=== PATIENT | female | born 1965 | race Caucasian/White ===

== ENCOUNTER 2017-08-12 09:40 | Outpatient (CLI) | payer OTHER | END 2017-08-12 09:41 | disposition home or self-care (01) | LOC: BICMAMMO 09:40 | PROVIDERS: ATTEND Specialist | DX: N60.91 Unspecified benign mammary dysplasia of right breast (principal) | CPT/HCPCS: 77066; G0279 ==

== ENCOUNTER 2019-12-12 09:50 | Outpatient (CLI) | payer BC ==
--- NOTE | 2019-12-12 11:31 | ULT ---
SOFT TISSUE ULTRASOUND RIGHT FACE: INDICATION: Palpable area of right lateral face region. FINDINGS: Directed ultrasound to the area of palpable concern is performed. There is a hypoechoic mass lesion in the subcutaneous tissues measuring 1.2 x 3.3 x 2.7 cm. This is well circumscribed. It is not cystic. IMPRESSION: An oblong-shaped hypoechoic subcutaneous solid-appearing mass is identified corresponding to the area of palpable concern. This does not have appearance of cyst or abscess. Etiology is indeterminate b y ultrasound. CT neck with IV contrast could be performed for further characterization as clinically indicated. POS: [facility]
--- NOTE | 2019-12-12 11:32 | ULT ---
HEPATIC DOPPLER ULTRASOUND: Date: 12/12/2019 HISTORY: Hepatic cysts. TECHNIQUE: Multiplanar Ko scale sonographic imaging of the upper abdomen obtained. Doppler interrogation of th e hepatic and splenic vasculature obtained with color flow and spectral analysis. FINDINGS: Images are compared to prior abdominal ultrasound performed 02/01/2015. Imaged IVC and aorta appear grossly unremarkable. Imaged portions of the pancreas are unremarkable. D istal body and tail are obscured by bowel gas. There is a septated, lobulated, large complex cystic lesion within the right lobe of the liver measur ing at least 7.3 x 9.7 x 6.6 cm, not optimally characterized on this examination secondary to its siz e. This complex cystic mass within the right lobe of the liver was better assessed on a CT of the abd omen with and without contrast performed 02/22/2015. On that CT examination, this lesion measured nusrat roximately 7.4 x 6.9 x 9.7 cm. No gallbladder wall thickening or pericholecystic fluid. No gallstones are noted on this exam. Additional simple cysts are seen scattered throughout the liver, including an inferior right hepatic cyst measuring up to 3.2 cm, not significantly changed when compared to prior CT. The left hepatic vein, left portal vein, right portal vein, middle hepatic vein, right hepatic vein, and hepatic artery are patent and demonstrate appropriate waveforms. Common bile duct measures 5.0 mm , within normal limits. Spleen measures up to 9.8 cm, within normal limits. Splenic artery and splenic vein are patent and demonstrate appropriate waveforms. IMPRESSION: 1. Large complex cystic lesion involving the right lobe of the liver. This lesion demonstrates no si gnificant interval change in size when compared to prior CT examination performed 02/22/2015. 2. Patent hepatic and splenic vasculature. POS: [facility]
== END 2019-12-12 09:51 | disposition home or self-care (01) ==
LOC: SCSULT 09:50
PROVIDERS: ATTEND Family Medicine
DX: K76.89 Other specified diseases of liver (principal); R22.0 Localized swelling, mass and lump, head
CPT/HCPCS: 76705; 76999

== ENCOUNTER 2024-05-26 11:21 | Outpatient (CLI) | payer BC | END 2024-05-26 11:22 | disposition home or self-care (01) | LOC: SCSRAD 11:21 | PROVIDERS: ATTEND Nurse Practitioner Family | DX: S99.921A Unspecified injury of right foot, initial encounter (principal) ==